=== PATIENT | male | born 1985 | race Caucasian/White ===

== ENCOUNTER 2017-11-27 20:34 | Emergency (ER) | payer OTHER ==
[~2017-11-27] VITALS: Ht 188 cm; Wt 125.2 kg
[2017-11-27 20:53] VITALS: TEMP 37; Ht 188 cm; Wt 125.2 kg
[2017-11-27 21:36] VITALS: BP 129/85; PULSE 89; O2SAT 99
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
== END 2017-11-27 21:35 | disposition home or self-care (01) ==
LOC: C.EDB 20:35 → C.EDA 21:35
DX: Z77.21 Contact with and (suspected) exposure to potentially hazardous body fluids (principal); Y99.0 Civilian activity done for income or pay